=== PATIENT | male | born 1965 | race Caucasian/White ===

== ENCOUNTER 2018-04-05 07:35 | Emergency (ER) | payer MEDICAID, OTHER ==
[~2018-04-05] VITALS: Ht 188 cm; Wt 106.0 kg
[~2018-04-05 07:35] MED LIST: DIAZ5TAB PO; SERT25TA PO
[2018-04-05 07:40] VITALS: BP 135/79
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
[2018-04-05] MEDS ORDERED: VENL37.52 PO (07:55)
[2018-04-05] MEDS ORDERED: PROP60TA PO (07:55)
--- NOTE | 2018-04-05 08:11 | NUR ---
PT TO IMAGING
--- NOTE | 2018-04-05 08:23 | NUR ---
PT BACK FROM IMAGING.
--- NOTE | 2018-04-05 08:58 | NUR ---
Patient/Caregiver given discharge instructions and they have confirmed that they understand the instructions. Patient ambulatory with steady gait. PT LEFT WITH ALL PERSONAL BELONGINGS.
== END 2018-04-05 09:06 | disposition home or self-care (01) ==
LOC: ED 08:45
DX: S20.212A Contusion of left front wall of thorax, initial encounter (principal); W20.8XXA Other cause of strike by thrown, projected or falling object, initial encounter; Y93.89 Activity, other specified; Y92.69 Other specified industrial and construction area as the place of occurrence of the external cause; Y99.8 Other external cause status
CPT/HCPCS: 99283

== ENCOUNTER 2019-05-06 06:40 | Emergency (ER) | payer OTHER ==
[~2019-05-06] VITALS: Ht 188 cm; Wt 111.3 kg
[~2019-05-06 06:40] MED LIST changes: +PROP60TA PO; +VENL37.52 PO
--- NOTE | 2019-05-06 07:14 | NUR ---
Note [email or web address] in EDM - 05/06/19 at 0726 by KRISTOPHER RECEIVED REPORT FROM KEV Castellanos RN. PT BEING OBSERVED BY SANAM. PT RESTING IN NAD. VISIBLE RISE AND FALL OF CHEST OBSERVED.
--- NOTE | 2019-05-06 07:26 | NUR ---
CHART UP FOR MD. WAITING FOR ORDERS. RECEIVED REPORT FROM KEV Castellanos RN.
[2019-05-06 08:48] LABS: RAPID INFLUENZA A Negative (Negative); RAPID INFLUENZA B Negative (Negative)
[2019-05-06 10:24] VITALS: BP 112/67
== END 2019-05-06 10:27 | disposition home or self-care (01) ==
LOC: ED 10:15
DX: J20.9 Acute bronchitis, unspecified (principal); Z20.828 Contact with and (suspected) exposure to other viral communicable diseases; J00 Acute nasopharyngitis [common cold]
CPT/HCPCS: 87400; 87486; 87581; 87633; 87798; 99283